=== PATIENT | female | born 1995 | race Caucasian/White ===

== ENCOUNTER 2024-01-28 15:53 | Outpatient (CLI) | payer BC, SELFPAY ==
--- OUTSIDE RECORDS SUMMARY | 2024-01-28 15:57 | XMS_ITS | Clinical Summary ---
Author Organization [facility] Address [address] [place] [address] Care Team Providers Care Child And Family Services Specialist Name Role Phone Kassidy Ag MD Primary Care Provider [phone]- [phone] Source Comments You are receiving this document as you are listed as the primary care provider,follow-up provider, or the patient has been referred to you for consultation.This is in compliance with the Medicare and[facility] EHR Incentive Program,which states Providers who transition their patient to another setting of careor provider of care or refers their patient to another provider of care shouldprovide summary care record for each transition of care or referral. [facility] Allergies No known active allergies Medications Medication Sig Dispensed Refills Start Date End Date Status citalopram (CELEXA) 40 MG tabletIndications:Anxi ety (HRC),Depression, unspecified depression type Take 1 Tablet (40 mg) by mouth daily. 90 Tablet 3 08/31/2023 08/30/2024 Active norgestimate-eth estradiol (ORTHO-CYCLEN) 0.25-35 MG-MCG tabletIndications:Enco unter for contraceptive management, unspecified type Take 1 Tablet by mouth daily. 84 Tablet 3 08/31/2023 08/30/2024 Active Active Problems Problem Noted Date Diagnosed Date HLD (hyperlipidemia) 09/01/2023 Prediabetes 09/01/2023 Class 3 obesity 08/28/2023 Anxiety 08/28/2023 Depression 08/28/2023 Encounters Date Type Department Care Team Description 12/24/2023 1:15 PM CDT [facility] [address] [place] [address] Kassidy Ag MD Chief Comp: QUESTIONS, GENERAL from Last 3 Months Immunizations Name Administration Dates Next Due 4vHPV (Gardasil) 04/03/2009 9vHPV (Gardasil 9) 05/03/2018 DTP-Hib (Tetramune) 02/06/1995, 4,03/05/1994,1993 DTaP 01/16/1999 Flu Vac (3+ yrs) 04/03/2009,04/08/2000 HepB Adult (Engerix-B, 20+ y rs, 3 dose series) 05/03/2018 HepB, Unspecified Formulation 07/30/1994, 994 Influenza (Flucelvax) 02/28/2021 Influenza (Flucelvax), Prese rv Free QIV 08/31/2023 Influenza IIV4 (Quadrivalent ) 0.5mL (71899) 03/12/2018 Influenza, Unspecified Formulation 04/21,05/18/1996,03/30/1996,1994,04/08/1995 MMR 01/16/1999,02/06/1995 Moderna 12+ 08/31/2023 Moderna Monovalent 12+ 09/13/2020,08/16/2020 OPV, Trivalent (Orimune or tOPV) 999,05/05/1994,03/05/1994,1993 PCV20 ([id number]) 08/31/2023 PPSV23 (Pneumovax) 03/12/2018 TB Skin Test (PPD) 04/20/2018,04/12/2018 Td (7+ yrs) 03/12/2018 Td Adult, Unspecified Formulation 03/12/2018 Tdap 02/20/2006 Family History Medical History Relation Name Comments Cancer Maternal Grandfather Srikanth Martinez Cancer Maternal Grandmother Donna Martinez Cancer, Colon Maternal Grandmother Donna Martinez Stroke Paternal Grandfather Jose Zarate Cancer Paternal Grandmother Sangeetha Zarate Relation Name Status Comments Father Alive Mother Alive Maternal Grandfather Srikanth Martinez Maternal Grandmother Donna Martinez Paternal Grandfather Jose Zarate Paternal Grandmother Sangeetha Zarate Social History Tobacco Use Types Packs/Day Years Used Date Smoking Tobacco: Every Day Cigarettes 1 10 Smokeless Tobacco: Never Tobacco Cessation:Ready to Q uit: Not Asked; Counseling Given: Not Answered Alcohol Use Standard Drinks/Week Comments No 0 (1 standard drink = 0.6 oz pur e alcohol) PHQ-2 Answer Date Recorded PHQ-2 Score 0 08/31/2023 Financial Resource Strain Answer Date R ecorded Is it hard for you to pay fo r the very basics like food, housing, medical care or heating? No 08/30/2023 Food Insecurity Answer Date Recorded Does your food run out before you have the money to buy more? No 08/30/2023 Transportation Needs Answer Date Record ed Does a lack of transportatio n keep you from your medical appointments or from getting your medications? No 024 Sex and Gender Information Value Date Recorded Sex Assigned at Not on file Gender Identity Not on file Sexual Orientation Not on file Last Filed Vital Signs Vital Sign Reading Time Taken Comments Blood Pressure 138/92 08/31/2023 3:16 PM CDT Pulse 100 08/31/2023 3:16 PM CDT Temperature 36.8 ??C (98.2 ??F) 02/13/2023 8:28 AM CD T Respiratory Rate 12 02/13/2023 8:28 AM CDT Oxygen Saturation 98% 02/13/2023 8:28 AM CDT Inhaled Oxygen Concentration - - Weight 125.2 kg (276 lb) 08/31/2023 3:05 PM CDT Height 164.1 cm (5' 4.6) 08/31/2023 3:05 PM CDT Body Mass Index 46.5 08/31/2023 3:05 PM CDT Plan of Treatment Health Maintenance Due Date Last Done Comments HPV Vaccine (3 - 3-dose series) 07/26/2018 05/03/2018, 04/03/2009 Cervical Cancer Screening Due 09/01/2023 08/31/2023 Influenza (#1) 2024 08/31/2023, 02/13, 03/12/2018, Additional history exists Prediabetes: HGBA1C 08/30/2024 08/31/2023 Adult Preventive Visit 08/30/2025 08/31/2023 DTaP/Tdap/Td (9 - Tdap) 03/12/2028 03/12/20 18, 03/12/2018, 02/20/2006, Additional history exists Zoster/Shingles (1 of 2) 11/03/2043 Hib Completed 02/06/1995, 04/16, 03/05/1994, Additional history exists IPV (Polio) Completed 01/16/1999, 04/16, 03/05/1994, Additional history exists HIV Screening (Preventive Services) Completed 03/12/2018 HepB Completed 05/03/2018, 07/16, 1993 COVID-19 Vaccine Completed 08/31/2023, 06/2020, 08/16/2020 Hep C Screening (Preventive Services) Completed 08/31/2023 Pneumococcal Completed 08/31/2023, 03/12/2018 HepA Aged Out No longer eligi ble based on patient's age to complete this topic MCV4 Aged Out No longer eligi ble based on patient's age to complete this topic Procedures Procedure Name Priority Date/Time Associated Diagnosis Comments HGB A1C Routine 08/31/2023 4:09 PM CDT Class 3 obesity (HRC) HEPATITIS C ANTIBODY, WITH REFLEX Routine 08/31/2023 4:09 PM CDT Need for hepatitis C screening test PAP TEST Routine 08/31/2023 3:56 PM CDT Screening for malignant neoplasm of cervix HIV 1/2 AG/AB 4TH GEN Routine 03/12/2018 11:58 AM CDT Screening for HIV (human immunodeficiency virus) from Last 3 Months or Most Recently Relevant to Health Maintenance Results * Hepatitis C Antibody, with Reflex (08/31/2023 4:09 PM CDT) Hepatitis C Antibody Negative (Non Reactive) Negative (Non Reactive) 08/31/2023 9:05 PM CDT [facility] Comment:Antibodies to HCV no t detected. Does not exclude the possiblity of exposure to HCV. Blood Venipuncture / Unknown 08/31/2023 4:09 PM CDT 08/31/2023 4:09 PM CDT Kassidy Ag MD LAB_1 Performing Organization Address [facility] Co de Phone Number [facility] [address] * (ABNORMAL) Hgb A1C (Expected: Now) - Collect in Lab (08/31/2023 4:09 PM CDT) Hemoglobin A1C 6.0(H) <=5.6 % 09/01/2023 11:01 AM CDT [facility] Estimated Average Glucose (Calc) 126 < 117 mg/dL 09/01/2023 11:01 AM CDT [facility] Comment:Estimated average gl ucose (eAG) converts A1c into glucose units (mg/dL) and estimates average glucose over the past approximately 3 months. The eAG reference interval (<117 mg/dL) corresponds to an A1c of <5.7%. Blood Venipuncture / Unknown 08/31/2023 4:09 PM CDT 08/31/2023 4:09 PM CDT Narrative [facility] - 09/01/2023 11:01 AM CDT For patients not previously diagnosed with diabetes: 5.7-6.4%: Increased risk for diabetes 6.5% and greater: Diagnostic for diabetes For patients diagnosed with diabetes: <8.0%: Goal of therapy for ages 18-75 Clinicians may recommend a higher or lower goal for specific individuals. Kassidy Ag MD LAB_1 Performing Organization Address [facility] Co de Phone Number [facility] [id number] [place] [address] * PAP Test (08/31/2023 3:56 PM CDT) Case Report Pap ? Case: [id number] ? Authorizing Provider: ??Kassidy Ag MD ?Collected: ? 08/31/2023 1556 ? Ordering Location: ? [facility] ? Received: ?08/31/2023 1716 ? [place] ? First Screen: ?Terra Barclay CT (ASCP) ? Specimen: ?Pap Test, Routine, Cervix/Endocervix ? 09/22/2023 9:44 AM CDT [facility] Pap Specimen Adequacy Satisfactory for evaluation, endocervical/arciniega sformation zone component present. 09/22/2023 9:44 AM CDT [facility] Pap Interpretation (NILM) Negative for intraepithelial lesion or malignancy. 09/22/2023 9:44 AM CDT [facility] Pap Disclaimer The Pap test is a screening test to aid in the detection of cervical and vaginal cancers and their precursor lesions. It is not a diagnostic procedure and should not be used as the sole means of detecting malignancy. Both false-positive and false-negative results may occur. 09/22/2023 9:44 AM CDT [facility] Gross Description The specimen is received in SurePath fixative and properly labeled. 1 Pap-stained SurePath slide is prepared. 09/22/2023 9:44 AM CDT [facility] Embedded Images 9:44 AM CDT [facility] Other Specimen Type ENTIRE ENDOCERVIX / Unknown 08/31/2023 3:56 PM CDT 08/31/2023 5:16 PM CDT Comment:LMP: No LMP recorded . Kassidy Ag MD LAB PATHOLOGY Performing Organization Address [facility] Co de Phone Number [facility] [address] [place] [id number] * HIV 1/2 Ag/Ab 4th Generation (03/12/2018 11:58 AM CDT) HIV-1 p24 Ag and HIV-1/HIV-2 Ab Nonreactive Nonreactive PN SOFT 03/12/2018 11:5 8 AM CDT 03/12/2018 2:34 PM CDT Narrative PN SOFT - 03/12/2018 3:11 PM CDT Performed at [facility], [address] [place] [address] CLIA number [id number] Mary Jameson MD LAB_1 Performing Organization Address [facility] Co de Phone Number PN SOFT [address] [place] [phone] from Last 3 Months or Most Recently Relevant to Health Maintenance Care Teams Child And Family Services Specialist Relationship Specialty Start Date End Date Kassidy Ag MD [address] [place] [address] PCP - General Family Practice 04/20/18
--- OUTSIDE RECORDS SUMMARY | 2024-01-28 15:57 | XMS_ITS | Encounter Summary ---
Author Organization [facility] Address [address] [place] [address] Care Team Providers Care Dye Maker Name Role Phone Kassidy Ag MD Primary Care Provider [phone]- [phone] Reason for Visit * Reason Comments QUESTIONS, GENERAL Entered automaticall y based on patient selection in Stamped. Encounter Details Date Type Department Care Team ([facility] Contact Info) Description 12/24/2023 1:15 PM CDT E-Visit [address] [address] [place] [address] [place] [id number] Chief Comp: QUESTIONS, GENERAL Social History Tobacco Use Types Packs/Day Years Used Date Smoking Tobacco: Every Day Cigarettes 1 10 Smokeless Tobacco: Never Alcohol Use Standard Drinks/Week Comments No 0 [...] on file Sexual Orientation Not on file documented as of this encounter Plan of Treatment Not on file documented as of this encounter Visit Diagnoses Not on filedocumented in this encounter Care Teams Dye Maker Relationship Specialty Start Date End Date Kassidy Ag MD [address] [place] [address] PCP - General Family Practice 04/20/18 documented as of this encounter
== END 2024-01-28 15:54 | disposition home or self-care (01) ==
PROVIDERS: PCP Registered Nurse; Visit Provider Registered Nurse
DX: R10.9 Unspecified abdominal pain (principal)
CPT/HCPCS: 80053; 83690; 86141

== ENCOUNTER 2024-02-05 09:19 | Emergency (ER) | payer BC, SELFPAY ==
[2024-02-05 09:35] VITALS: BP 119/87; PULSE 97; RESP 19; TEMP 36.2; O2SAT 97; BMI 48.1
--- NOTE | 2024-02-05 09:48 | CRLHL7_ITS ---
For Patients: As a result of the Century Cures Act, medical imaging exams and procedure reports are released immediately into your electronic medical record. You may view this report before your referring provider. If you have questions, please contact your health care provider. INDICATION: Right flank pain. Right lower quadrant abdominal pain. TECHNIQUE: CT abdomen and pelvis acquired with 137 cc of Isovue 370 IV contrast. COMPARISON: None. FINDINGS: Lower chest: Unremarkable. Liver: Too small to characterize low densities in the left lobe likely represent incidental cysts or hemangiomas. The liver is otherwise unremarkable. Spleen: Unremarkable. Pancreas: Unremarkable. Gallbladder and bile ducts: No calcified stones or biliary ductal dilatation. Kidneys: No urolithiasis or hydronephrosis. Adrenal glands: Left adrenal nodule measuring 18 mm does not meet criteria for adenoma based on this exam. Additional subcentimeter nodule in the right adrenal gland is also present. GI tract: No obstruction or focal inflammatory changes. Normal appendix. No free air or free fluid. Lymph nodes: No pathologic lymphadenopathy. Vascular structures: Unremarkable. Pelvic Organs: Unremarkable. Bones: No acute or suspicious osseous abnormality. IMPRESSION: 1. No acute intra-abdominal or pelvic abnormality. 2. Left adrenal nodule does not meet criteria for adenoma based on this exam. Follow-up adrenal protocol CT without and with IV contrast can be performed on a nonemergent basis. Dictated by Pk Rose MD @ 02/05/2024 12:01:52 PM Please note that all CT scans at this facility use dose modulation, iterative reconstruction, and/or weight-based dosing when appropriate to reduce radiation dose to as low as reasonably achievable. Dictated by: Pk Rose MD @ 02/05/2024 12:02:09 (Electronically Signed)
--- NOTE | 2024-02-05 09:49 | ED_ITS ---
HPI - General Adult General Date Seen: 02/05/24 Chief complaint: Abdominal Pain Stated complaint: right side pain Time Seen by Provider: 02/05/24 09:22 Source: patient Mode of arrival: ambulatory Limitations: no limitations History of Present Illness HPI narrative: patient is a 28-year-old female presenting to emergency department for right flank pain. She states this feels similar previous kidney stones has had in the past but in a different location. Pain is on the lateral aspect of her abdomen at about the midway point. Denies any back pain. Symptoms are yesterday in the afternoon and have been persistent since then. Moving makes symptoms worse. She has not had much to eat or drink but she states that it has been normal for her for the past year as she has been dealing with chronic nausea. Her nausea is not seem any worse than normal. Has not had a bowel movement today yet and she usually goes every morning. Denies fevers, chills, chest pain, shortness of breath, lightheadedness, dizziness, dysuria, polyuria. No previous abdominal surgeries. States the pain is dull in nature and does not radiate. Has not had any pain medication yet. Related Data Home Medications ?Medication ?Instructions ?Recorded ?Confirmed citalopram 40 mg tablet 40 mg PO QDAY 03/03/22 01/28/24 norgestimate 0.25 mg-ethinyl 1 tab PO DAILY 01/12/24 01/28/24 estradiol 35 mcg tablet (Estarylla) Previous Rx's ?Medication ?Instructions ?Recorded omeprazole 40 mg capsule,delayed 40 mg PO QDAY 8 weeks #56 caps 01/28/24 release Allergies Allergy/AdvReac Type Severity Reaction Status Date / Time No Known Drug Allergies Allergy Verified 02/05/24 11:52 Review of Systems Status of ROS: Reports: 10 or more systems reviewed and unremarkable except as noted in History and below 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 - Personal history of other infectious and parasitic diseases (ICD- 10) Surgical History History of wisdom tooth extraction ?K08.409 - Partial loss of teeth, unspecified cause, unspecified class (ICD- 10) Family History Maternal Grandmother Colon cancer Paternal Grandfather Stroke Social History (Updated 01/28/24 @ 16:45 by Kimberley Rutherford CNP) Smoking Status: Current every day smoker What tobacco products do you use: cigarettes Do you use any of these nicotine containing products: E-Cigarettes How often do you have a drink containing alcohol: never AUDIT-C Alcohol total score: 0 Non-prescribed substance use: marijuana (any form) Caffeine: Yes Exam Narrative: Exam Narrative: Const: Well-nourished, Well-developed, in mild distress Eyes: PERRL, no conjunctival injection, and symmetrical lids HENT: Atraumatic external nose and ears. Moist mucous membranes. Neck: Symmetric, trachea midline, No thyromegaly. CVS: RRR, No murmurs or gallops. Peripheral pulses 2+ and equal in all extremities RESP: Unlabored respiratory effort. Clear to auscultation bilaterally. GI: Tenderness to palpation on the lateral aspect of the right abdomen,Nondistended, No rebound or guarding. MSK:Extremities w/o deformity, Normal Active ROM Skin: Warm, Dry. No rashes or lesions. Neuro: Normal Muscle tone, No focal neurological deficits. Psych: Awake, Alert, & Oriented x3. Appropriate mood and affect. Const: Vital Signs, click to edit/add: Vital Signs - 24 hr 02/05/24 09:35 02/05/24 11:36 Temperature 97.2 F L Pulse Rate [Pulse Oximeter] 97 66 Respiratory Rate 19 18 Blood Pressure [Ri ght Upper Arm] 119/87 127/76 Pulse Oximetry 97 96 Oxygen Delivery Me thod Room Air Room Air Course Vital Signs Vital signs: Initial Vital Signs Temperature 97.2 F L 02/05/24 09:35 Temperature Source Temporal Artery Scan 02/05/24 09:35 Pulse Rate 97 02/05/24 09:35 Respiratory Rate 19 02/05/24 09:35 Blood Pressure 119/87 02/05/24 09:35 Blood Pressure Mean 97 02/05/24 09:35 Pulse Oximetry 97 02/05/24 09:35 Oxygen Delivery Method Room Air 02/05/24 09:35 Vital Signs Temperature 97.2 F L 02/05/24 09:35 Pulse Rate 97 02/05/24 09:35 Respiratory Rate 19 02/05/24 09:35 Blood Pressure 119/87 02/05/24 09:35 Pulse Oximetry 97 02/05/24 09:35 Oxygen Delivery Method Room Air 02/05/24 09:35 Temperature 97.2 F L 02/05/24 09:35 Pulse Rate 66 02/05/24 11:36 Respiratory Rate 18 02/05/24 11:36 Blood Pressure 127/76 02/05/24 11:36 Pulse Oximetry 96 02/05/24 11:36 Oxygen Delivery Method Room Air 02/05/24 11:36 Medical Decision Making MDM Narrative Medical decision making narrative: patient is a 28-year-old female presenting for flank pain. She describes as similar previous kidney stones. Is also close enough to the right lower quadrant the abdomen that I am considering appendicitis at this time. She has no pain in the right upper quadrant and cholecystitis seems less likely. Eating does not change the symptoms and this does not sound like gallbladder disease. is not having any epigastric pain and pancreatitis seems unlikely. We will do CBC, CMP, urinalysis. CT scan with contrast ordered. Is not requesting anything for pain or nausea at this time. Lab work returned showing no concerning abnormalities. CT scan returned showing no concerning abnormalities as reviewed by myself and the radiologist. No signs of UTI. I am unsure what exactly is causing her pain at this time but consider when hurts with movement very well could be a muscle strain. She will be discharged at this time and she is agreeable to this plan. Lab Data Labs: Lab Results 02/05/24 02/05/24 02/05/24 Range/Units 10:00 10:30 11:28 WBC 10.23 (4.50-11.00) K/uL RBC 4.60 (4.00-5.20) m/uL Hgb 13.0 (12.0-16.0) gm/dL Hct 40.5 (33.0-51.0) % MCV 88 (80-100) fL MCH 28 (26-34) pg MCHC 32 (32-36) gm/dL RDW Coeff of Boogie 12.5 (11.5-15.5) % Plt Count 346 (140-440) K/uL Neut % (Auto) 65.4 (42.0-72.0) % Lymph % (Auto) 25.2 (20-44) % [place] % (Auto) 7.2 (0.0-11.0) % Eos % (Auto) 1.9 (0.0-7.0) % Baso % (Auto) 0.2 (0.0-3.0) % Neut # (Auto) 6.69 (1.7-7.0) K/uL Lymph # (Auto) 2.58 (0.90-2.90) K/uL [place] # (Auto) 0.70 (0.00-0.90) K/UL Eos # (Auto) 0.19 (0.00-0.50) K/uL Baso # (Auto) 0.02 (0.00-0.30) K/uL Abs Immat Gran (auto) 0.01 (0.00-0.30) K/uL Imm/Tot Granulo (auto) 0.1 % Sodium 136 (135-149) mmol/L Potassium 4.4 (3.6-5.1) mmol/L Chloride 104 (96-114) mmol/L Carbon Dioxide 27 (20-32) mmol/L Anion Gap 5 L (7-15) mEq/L BUN 12 (5-24) mg/dL Creatinine 0.8 (0.5-1.5) mg/dL Estimated Creat Clear 88.79 Estimated GFR 102 ml/min Glucose 89 (60-115) mg/dL Calcium 9.5 (8.4-10.6) mg/dL Total Bilirubin 0.3 (0.1-1.5) mg/dL AST 21 (12-35) U/L ALT 19 (4-35) U/L Alkaline Phosphatase 112 (40-150) U/L Total Protein 7.5 (6.0-8.3) g/dL Albumin 4.3 (3.3-5.0) g/dL HCG, Qual Negative (Negative) Urine Color Cancelled Dark yellow Urine Appearance Cancelled Clear Urine pH Cancelled 6.5 Ur Specific [place] Cancelled 1.025 Urine Protein Cancelled Negative Urine Glucose (UA) Cancelled Negative Urine Ketones Cancelled Negative Urine Blood Cancelled Negative Urine Nitrite Cancelled Negative Urine Bilirubin Cancelled Negative Urine Urobilinogen Cancelled 0.2 Ur Leukocyte Esterase Cancelled Negative Urine RBC Cancelled 0-2 Urine WBC Cancelled 0-2 Urine WBC Clumps Cancelled Ur Squamous Epith Cells Cancelled Moderate A Herbert Biurate Crystals Cancelled Calcium Carbonate Cryst Cancelled Calcium Phosphate Cryst Cancelled Calcium Oxalate Crystal Cancelled Cystine Crystals Cancelled Uric Acid Crystals Cancelled Triple Phos Crystals Cancelled Sulfur Crystals Cancelled Cholesterol Crystals Cancelled Tyrosine Crystals Cancelled Hippuric Acid Crystals Cancelled Amorphous Sediment Cancelled Other Sediment Cancelled Urine Bacteria Cancelled Moderate A Fatty Casts Cancelled Hyaline Casts Cancelled Fine Granular Casts Cancelled Coarse Granular Casts Cancelled Waxy Casts Cancelled RBC Casts Cancelled WBC Casts Cancelled Other Casts Cancelled Urine Starch Cancelled Urine Mucus Cancelled Urine Trichomonas Cancelled Urine Yeast Cancelled Imaging Data CT scan abdomen and pelvis: Attestation: I have reviewed the pertinent imaging results. Radiologist's impression: 1. No acute intra-abdominal or pelvic abnormality. 2. Left adrenal nodule does not meet criteria for adenoma based on this exam. Follow-up adrenal protocol CT without and with IV contrast can be performed on a nonemergent basis. Dictated by Pk Rose MD @ 02/05/2024 12:01:52 PM Please note that all CT scans at this facility use dose modulation, iterative reconstruction, and/or weight-based dosing when appropriate to reduce radiation dose to as low as reasonably achievable. Dictated by: Pk Roes MD @ 02/05/2024 12:02:09 Discharge Plan Discharge Clinical Impression: Abdominal muscle strain Qualifiers: Encounter type: initial encounter Qualified Code(s): S39.011A - Strain of muscle, fascia and tendon of abdomen, initial encounter Patient Disposition: Home, Self-Care Condition: Stable Instructions: Abdominal Pain (ED) Additional Instructions: I believe your symptoms are from of muscle strain of the abdominal wall has a do not see any emergent or concerning abnormalities any lab work or imaging. If symptoms are worsening will it is reasonable to get re-evaluated in the emergency department. Follow-up with primary care provider next week if symptoms seem to be persisting. Prescriptions: No Action citalopram 40 mg tablet 40 mg PO QDAY Patient Comments: TAKE 1 TABLET BY MOUTH EVERY DAY norgestimate-ethinyl estradiol [Estarylla] 0.25-35 mg-mcg tablet 1 tab PO DAILY omeprazole 40 mg capsule,delayed release(DR/EC) 40 mg PO QDAY 56 Days Qty: 56 0RF Follow Up/Referrals: Kimberley Rutherford, BUILDING ARCHITECT [Primary Care Provider] - Stand Alone Forms: [facility] Info Instructions
[2024-02-05 10:06] LABS: Basophils Absolute Auto 0.02 K/uL (0.00-0.30); Basophils Percent Auto 0.2 % (0.0-3.0); Eosinophils Absolute Auto 0.19 K/uL (0.00-0.50); Eosinophils Percent Auto 1.9 % (0.0-7.0); Hematocrit 40.5 % (33.0-51.0); Immature Granulocytes Abs Auto 0.01 K/uL (0.00-0.30); Immature Granulocytes Pct Auto 0.1 %; Lymphocytes Absolute Auto 2.58 K/uL (0.90-2.90); Lymphocytes Percent Auto 25.2 % (20-44); Mean Corpuscular HGB Conc 32 gm/dL (32-36); Mean Corpuscular Hemoglobin 28 pg (26-34); Mean Corpuscular Volume 88 fL (80-100); Monocytes Percent Auto 7.2 % (0.0-11.0); Neutrophils Absolute Auto 6.69 K/uL (1.7-7.0); Neutrophils Percent Auto 65.4 % (42.0-72.0); Platelet Count* 346 K/uL (140-440); RDW Coefficient of Variation % 12.5 % (11.5-15.5); White Blood Count* 10.23 K/uL (4.50-11.00)
--- OUTSIDE RECORDS SUMMARY | 2024-02-05 10:06 | XMS_ITS | Encounter Summary ---
Author Organization [facility] Address [address] [place] [address] Care Team Providers Care Lab Tester Name Role Phone Kassidy Ag MD Primary Care Provider [phone]- [phone] Reason for Visit * Reason Comments QUESTIONS, GENERAL Entered automaticall y based on patient selection in [id number]. Encounter Details Date Type Department Care Team ([facility] Contact Info) Description 12/24/2023 1:15 PM CDT E-Visit [address] [address] [place] [address] [place] [id number] Chief Comp: QUESTIONS, GENERAL Social History Tobacco [...] on filedocumented in this encounter Care Teams Lab Tester Relationship Specialty Start Date End Date Kassidy Ag MD [address] [place] [address] PCP - General Family Practice 04/20/18 documented as of this encounter
--- OUTSIDE RECORDS SUMMARY | 2024-02-05 10:06 | XMS_ITS | Clinical Summary ---
Author Organization [facility] Address [address] [place] [address] Care Team Providers Care [employer] Name Role Phone Kassidy Ag MD Primary Care Provider [phone]- [phone] Source Comments You are receiving this document as you are listed as the primary care provider,follow-up provider, or the patient has been referred to you for consultation.This is in compliance with the Medicare and[facility] Hospital[facility] EHR Incentive Program,which states Providers who transition their patient to another setting of careor provider of care or refers their patient to another provider of care shouldprovide summary care record for each transition of care or referral. [facility] Allergies No known active allergies Medications Medication [...] Description 12/24/2023 1:15 PM CDT [facility] [address] [place] [address] Kassidy Ag MD Chief Comp: QUESTIONS, GENERAL [...] QIV 08/31/2023 Influenza IIV4 (Quadrivalent ) 0.5mL (46508) 03/12/2018 Influenza, Unspecified Formulation 04/21,05/18/1996,03/30/1996,1994,04/08/1995 MMR 01/16/1999,02/06/1995 Moderna 12+ 08/31/2023 Moderna Monovalent 12+ 09/13/2020,08/16/2020 OPV, Trivalent (Orimune or tOPV) 999,05/05/1994,03/05/1994,1993 PCV20 ([id number]) 08/31/2023 PPSV23 (Pneumovax) 03/12/2018 TB Skin Test [...] Health Maintenance Due Date Last Done Comments MTM Covered 1993 HPV Vaccine (3 - 3-dose series) 07/26/2018 [...] Negative (Non Reactive) 08/31/2023 9:05 PM CDT [facility] Comment:Antibodies to HCV no t detected. Does not exclude the possiblity of exposure to HCV. Blood Venipuncture / Unknown 08/31/2023 4:09 PM CDT 08/31/2023 4:09 PM CDT Kassidy Ag MD LAB_1 Performing Organization Address [facility] Co de Phone Number [facility] [address] * (ABNORMAL) Hgb A1C (Expected: Now) - Collect in Lab (08/31/2023 4:09 PM CDT) Hemoglobin A1C 6.0(H) <=5.6 % 09/01/2023 11:01 AM CDT [facility] Estimated Average Glucose (Calc) 126 < 117 mg/dL 09/01/2023 11:01 AM CDT [facility] Comment:Estimated average gl ucose (eAG) converts A1c into glucose units (mg/dL) and estimates average glucose over the past approximately 3 months. The eAG reference interval (<117 mg/dL) corresponds to an A1c of <5.7%. Blood Venipuncture / Unknown 08/31/2023 4:09 PM CDT 08/31/2023 4:09 PM CDT Narrative [facility] - 09/01/2023 11:01 AM CDT For patients not previously diagnosed with diabetes: 5.7-6.4%: Increased risk for diabetes 6.5% and greater: Diagnostic for diabetes For patients diagnosed with diabetes: <8.0%: Goal of therapy for ages 18-75 Clinicians may recommend a higher or lower goal for specific individuals. Kassidy Ag MD LAB_1 Performing Organization Address [facility] Co de Phone Number [facility] [address] * PAP Test (08/31/2023 3:56 PM CDT) Case Report Pap ? Case: [id number] ? Authorizing Provider: ??Kassidy Ag MD ?Collected: ? 08/31/2023 1556 ? Ordering Location: ? [facility] ? Received: ?08/31/2023 1716 ? [facility] [place] ? First Screen: ?Terra Barclay CT (ASCP) ? Specimen: ?Pap Test, Routine, Cervix/Endocervix ? 09/22/2023 9:44 AM CDT [facility] Pap Specimen Adequacy Satisfactory for evaluation, endocervical/arciniega sformation zone component present. 09/22/2023 9:44 AM CDT [facility] Pap Interpretation (NILM) Negative for intraepithelial lesion or malignancy. 09/22/2023 9:44 AM CDT [facility] Pap Disclaimer The Pap test is a screening test to aid in the detection of cervical and vaginal cancers and their precursor lesions. It is not a diagnostic procedure and should not be used as the sole means of detecting malignancy. Both false-positive and false-negative results may occur. 09/22/2023 9:44 AM CDT [facility] Gross Description The specimen is received in SurePath fixative and properly labeled. 1 Pap-stained SurePath slide is prepared. 09/22/2023 9:44 AM CDT [facility] Embedded Images 9:44 AM CDT [facility] Other Specimen Type ENTIRE ENDOCERVIX / Unknown 08/31/2023 3:56 PM CDT 08/31/2023 5:16 PM CDT Comment:LMP: No LMP recorded . Kassidy Ag MD LAB PATHOLOGY Performing Organization Address [facility]/ZIP Co de Phone Number [facility] [address] [place] [phone], [facility] * HIV 1/2 Ag/Ab 4th Generation (03/12/2018 11:58 AM CDT) HIV-1 p24 Ag and HIV-1/HIV-2 Ab Nonreactive Nonreactive PN SOFT 03/12/2018 11:5 8 AM CDT 03/12/2018 2:34 PM CDT Narrative PN SOFT - 03/12/2018 3:11 PM CDT Performed at [facility], [address] [place] [id number] CLIA number [id number] Mary Jameson MD LAB_1 Performing Organization Address City/[facility]/ZIP Co de Phone Number PN SOFT [address] [place] [phone] from Last 3 Months or Most Recently Relevant to Health Maintenance Care Teams [employer] Relationship Specialty Start Date End Date Kassidy Ag MD [address] [place] [address] PCP - General Family Practice 04/20/18
[2024-02-05 10:17] LABS: Slide Review Reflex No
[2024-02-05 10:19] LABS: Albumin* 4.3 g/dL (3.3-5.0); Chloride* 104 mmol/L (96-114); Potassium* 4.4 mmol/L (3.6-5.1); Sodium* 136 mmol/L (135-149)
[2024-02-05 10:21] LABS: Creatinine* 0.8 mg/dL (0.5-1.5); Est. Creatinine Clearance* 88.79; Estimated Glomerular Filt Rate 102 ml/min
[2024-02-05 10:22] LABS: Alanine Aminotransferase* 19 U/L (4-35); Alkaline Phosphatase* 112 U/L (40-150); Anion Gap 5 mEq/L (7-15); Bilirubin Total* 0.3 mg/dL (0.1-1.5); Blood Urea Nitrogen* 12 mg/dL (5-24); Carbon Dioxide* 27 mmol/L (20-32); Glucose* 89 mg/dL (60-115); Total Protein* 7.5 g/dL (6.0-8.3)
[2024-02-05 10:23] LABS: Calcium* 9.5 mg/dL (8.4-10.6)
[2024-02-05 10:36] LABS: HCG Qualitative Serum* Negative (Negative)
[2024-02-05 10:38] LABS: Aspartate Amino Transferase* 21 U/L (12-35)
[2024-02-05 11:34] LABS: Appearance Urine Clear (Clear); Bilirubin Urine Negative (Negative); Blood Urine Negative (Negative); Color Urine Dark yellow (Yellow); Glucose Urine Negative (Negative); Ketones Urine Negative (Negative); Leukocyte Esterase Urine Negative (Negative); Nitrite Urine Negative (Negative); Protein Urine Negative (Negative); Specific Gravity Urine 1.025 (1.000-1.030); Urobilinogen Urine 0.2 (0.2-1.0); pH Urine 6.5 (5.0-8.5)
[2024-02-05 11:36] VITALS: BP 127/76; PULSE 66; RESP 18; O2SAT 96
[2024-02-05 11:45] LABS: Bacteria Urine Moderate; RBC Urine 0-2 (0-2); Squamous Epithelial Cell Urine Moderate (None-Few); WBC Urine 0-2 (0-5)
== END 2024-02-05 12:33 | disposition home or self-care (01) ==
PROVIDERS: Emergency Provider Student in an Organized Health Care Education/Training Program; PCP Registered Nurse
DX: S39.011A Strain of muscle, fascia and tendon of abdomen, initial encounter (principal)
CPT/HCPCS: 36415; 74177; 80053; 81001; 84703; 85025; 87086; 99283; Q9967

== ENCOUNTER 2025-03-01 17:21 | Outpatient (CLI) | payer BC, SELFPAY ==
--- NOTE | 2025-03-01 17:30 | CRLHL7_ITS ---
For Patients: As a result of the Century Cures Act, medical imaging exams and procedure reports are released immediately into your electronic medical record. You may view this report before your referring provider. If you have questions, please contact your health care provider. CLINICAL HISTORY: Abdominal pain COMPARISON: 02/05/2024 TECHNIQUE: Real time lira scale imaging and color Doppler analysis was performed of the abdomen. FINDINGS: Liver echotexture is coarsened and increased. Hyperechoic lesion within the left hepatic lobe measures 10 x 9 x 10 millimeters. The spleen is of normal size. The visualized pancreas appears normal. The proximal abdominal aorta and IVC appear normal. There is no evidence of ascites. The gallbladder is contracted. The gallbladder wall measures 2.5 mm in thickness. The common bile duct are visualized. The kidneys appear symmetric. The right kidney measures 10.6 cm in length and the left kidney measures 11.2 cm. There is no evidence of a renal calculus or hydronephrosis. IMPRESSION: Hepatic steatosis with incidental 1 cm intrahepatic hemangioma. Contracted gallbladder which in the NPO state is considered abnormal suggesting biliary dyskinesia or chronic acalculous cholecystitis. Dictated by Michael Dang MD @ 03/08/2025 3:01:55 PM (Electronically Signed)
== END 2025-03-01 17:22 | disposition home or self-care (01) ==
LOC: US 17:22
PROVIDERS: Visit Provider Internal Medicine Gastroenterology
DX: R10.84 Generalized abdominal pain (principal); K76.0 Fatty (change of) liver, not elsewhere classified; D18.09 Hemangioma of other sites
CPT/HCPCS: 76700